=== PATIENT | male | born 1945 | race Caucasian/White ===

== ENCOUNTER 2021-05-30 16:59 | Emergency (ER) | payer MEDICARE ==
[~2021-05-30] VITALS: Ht 172.7 cm; Wt 90.7 kg
[~2021-05-30 16:59] MED LIST: AMBIEN CR12.5 MG PO; ATIVAN1 MG PO; EFFEXOR XR150 MG PO; HYDROXYZINE HCL50 MG PO; HYDROXYZINE PA100 MG PO; TRAZODONE HCL150 MG PO; TRAZODONE HCL50 MG PO; VENLAFAXINE H37.5 M1 PO; WARFARIN SODIU7.5 MG PO; WARFARIN SODIUM4 MG PO; ZOLPIDEM TART6.25 MG PO
--- OUTSIDE RECORDS SUMMARY | 2021-05-30 17:02 | XMS ---
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 Andria has no Care Guidelines for this patient. Clarke VISIT COUNT (12 MO.) 1 LYDIA Ray TOTAL 1 NOTE: Visits indicate total known visits. ED/C VISIT TRACKING (12 MO.) 05/30/2021 17:00 LYDIA [facility] OR TYPE: Emergency COMPLAINT: - DIZZINESS INPATIENT VISIT TRACKING (12 MO.) No inpatient visits to display in this time frame [id number]
[2021-05-30] MEDS ORDERED: VENLAFAXINE H37.5 M1 PO (17:35)
[2021-05-30] MEDS ORDERED: JANTOVEN7.5 MG PO (18:53)
--- NOTE | 2021-05-31 07:21 | EKG ---
[facility] [address] [place] [address] Signed Sinus bradycardia with 1st degree AV block Otherwise normal ECG No previous ECGs available Confirmed by ELIZABETH URIBE MD ([id number]) on 05/31/2021 7:21:12 AM Electronically Signed By: ELIZABETH URIBE MD 05/31/21720 PATIENT NAME: NASRIN CHRISTIANSON Electrocardiogram DATE OF : 43 PHYSICIAN: ELIZABETH URIBE MD REPORT #: [id number] REPORT IS CONFIDENTIAL AND NOT TO BE RELEASED WITHOUT AUTHORIZATION
== END 2021-05-30 19:41 | disposition home or self-care (01) ==
LOC: ED 16:59
DX: R42 Dizziness and giddiness (principal); Z88.0 Allergy status to penicillin; Z79.899 Other long term (current) drug therapy; Z79.01 Long term (current) use of anticoagulants
CPT/HCPCS: 70450; 84484; 85025; 85610; 93005; 93010; 99284-25